=== PATIENT | female | born 1965 | race Caucasian/White ===

== ENCOUNTER 2019-08-31 10:25 | Outpatient (CLI) | payer OTHER | END 2019-08-31 10:32 | disposition home or self-care (01) | LOC: SONOGRAMA 10:25 | DX: E04.1 Nontoxic single thyroid nodule (principal) ==

== ENCOUNTER 2021-08-28 12:35 | Outpatient (CLI) | payer OTHER | END 2021-08-28 12:42 | disposition home or self-care (01) | LOC: SONOGRAMA 12:35 | PROVIDERS: ATTEND General Practice | DX: E04.2 Nontoxic multinodular goiter (principal); E34.8 Other specified endocrine disorders; E06.3 Autoimmune thyroiditis ==

== ENCOUNTER 2021-11-10 11:52 | Outpatient (CLI) | payer OTHER | END 2021-11-10 11:59 | disposition home or self-care (01) | LOC: RAD 11:52 | PROVIDERS: ATTEND Internal Medicine Rheumatology | DX: M15.8 Other polyosteoarthritis (principal) ==